=== PATIENT | female | born 1970 | race Caucasian/White ===

== ENCOUNTER 2016-11-21 16:59 | Emergency (ER) | payer BC ==
[~2016-11-21] VITALS: Ht 157.5 cm; Wt 83.9 kg
[~2016-11-21 16:59] MED LIST: CENTRUM CHEWAB1 EACH PO; CLARITIN10 MG PO; FLONASE16 GM NASBOTH; PREVACID15 MG PO; VALSARTAN-HCTZ1 EAC1 PO
== END 2016-11-21 17:39 | disposition short-term general hospital (02) ==
LOC: ER 16:59
DX: K02.9 Dental caries, unspecified (principal); R22.0 Localized swelling, mass and lump, head; Z88.1 Allergy status to other antibiotic agents; Z88.0 Allergy status to penicillin

== ENCOUNTER 2016-11-22 21:48 | Emergency (ER) | payer BC ==
[~2016-11-22] VITALS: Ht 157.5 cm; Wt 88.5 kg
== END 2016-11-23 00:40 | disposition short-term general hospital (02) ==
LOC: ER 21:48
DX: K04.7 Periapical abscess without sinus (principal); Z88.0 Allergy status to penicillin; Z88.1 Allergy status to other antibiotic agents; Z88.6 Allergy status to analgesic agent
CPT/HCPCS: J0696; J1885